=== PATIENT | female | born 1975 | race Two or more races ===

== ENCOUNTER → 2017-03-01 | Outpatient (CLI) | payer OTHER ==
--- NOTE | 2017-03-01 16:42 | KCIC ---
SHOULDER 2+V RIGHT History: Right shoulder pain of unknown duration Comparison: None. Findings: 3 views of the right shoulder are submitted. No acute fracture or dislocation is identified. There is very mild degenerative change of the acromioclavicular joint. Impression: 1. No significant osseous abnormality is identified other than very mild degenerative change of the acromioclavicular joint. Electronically signed by: Rex Joya MD (03/01/2017 4:39 PM)
== END | disposition home or self-care (01) ==
LOC: KCIC 16:12
PROVIDERS: ATTEND Family Medicine
DX: M25.512 Pain in left shoulder (principal); M25.511 Pain in right shoulder
CPT/HCPCS: 73030